=== PATIENT | male | born 1950 | race Caucasian/White ===

== ENCOUNTER → 2016-12-29 | Outpatient (CLI) | payer MEDICARE, OTHER ==
[~2016-12-29] MED LIST: FINA5TAB4 PO; GLUC500T8 PO; MULT-412 PO; NIAC500T PO; OMEG1CAP12 PO; ROSU10TA PO; TADA5TAB2 PO
[2016-12-29 20:44] LABS: ASPARTATE AMINO TRANSFERASE 22 U/L (15-37); BLOOD UREA NITROGEN 23 mg/dL (7-18)
== END | disposition home or self-care (01) ==
LOC: STAR 07:46
PROVIDERS: ATTEND Surgery
DX: Z01.818 Encounter for other preprocedural examination (principal); K40.90 Unilateral inguinal hernia, without obstruction or gangrene, not specified as recurrent
CPT/HCPCS: 36415; 80053; 85025; 93005

== ENCOUNTER 2017-01-13 07:07 | Day surgery (SDC) | payer MEDICARE, OTHER ==
[~2017-01-13] VITALS: Ht 182.9 cm; Wt 85.0 kg
[2017-01-13] MEDS ORDERED: FENTANYL PF 250 MCG/5ML ONE (07:10)
[2017-01-13] MEDS ORDERED: MIDAZOLAM 1 MG/ML, 2ML ONE (07:10)
[2017-01-13] MEDS ORDERED: LACTATED RINGERS 1,000 ML IV SCH (07:27)
[2017-01-13] MEDS ORDERED: BUPIVACAINE/PF 0.25% ONE (07:43)
[2017-01-13 07:48] VITALS: BP 124/82
[2017-01-13] MEDS ORDERED: OXYcodone 5 MG/5 ML ORAL.SOL UDC PO PRN (09:00)
[2017-01-13] MEDS ORDERED: MEPERIDINE/PF 25MG/0.5ML IVPush PRN (09:00)
[2017-01-13] MEDS ORDERED: ACETAMINOPHEN 325 MG TABLET PO PRN (09:00)
[2017-01-13] MEDS ORDERED: LABETALOL 5MG/ML, 20ML IV PRN (09:00)
[2017-01-13] MEDS ORDERED: FENTANYL PF 100 MCG/2ML IV PRN (09:00)
[2017-01-13] MEDS ORDERED: EPINEPHRINE 1 MG/ML, 1ML ONE ×2 (09:00→09:03)
[2017-01-13] MEDS ORDERED: PROMETHAZINE 25 MG/ML, 1ML IV PRN (09:00)
[2017-01-13] MEDS ORDERED: ONDANSETRON 2MG/ML, 2ML IVPush PRN (09:00)
[2017-01-13] MEDS ORDERED: HYDROmorphone 1 MG/ML, 1ML IV PRN (09:00)
[2017-01-13] MEDS ORDERED: ACETAMINOPHEN 325 MG TABLET ONE (10:53)
[2017-01-13] MEDS ORDERED: OXYcodone 5 MG/5 ML ORAL.SOL UDC ONE (10:53)
[2017-01-13] MEDS ORDERED: ROCURONIUM 10 MG/ML ONE (11:06)
[2017-01-13] MEDS ORDERED: ONDANSETRON 2MG/ML, 2ML ONE (11:06)
[2017-01-13] MEDS ORDERED: GLYCOPYRROLATE 0.2MG/1ML ONE (11:06)
[2017-01-13] MEDS ORDERED: PROPOFOL 10 MG/ML, 20ML ONE (11:06)
[2017-01-13] MEDS ORDERED: NEOSTIGMINE 1 MG/ML, 10ML ONE (11:06)
[2017-01-13] MEDS ORDERED: KETOROLAC 30 MG/1 ML ONE (11:06)
[2017-01-13] MEDS ORDERED: DEXAMETHASONE 4 MG/ML, 1ML ONE (11:06)
[2017-01-13] MEDS ORDERED: CEFAZOLIN 1,000 MG ONE (11:06)
== END 2017-01-13 12:20 | disposition home or self-care (01) ==
LOC: OUT 07:07
PROVIDERS: ATTEND Surgery
DX: K40.90 Unilateral inguinal hernia, without obstruction or gangrene, not specified as recurrent (principal); J45.909 Unspecified asthma, uncomplicated; E78.00 Pure hypercholesterolemia, unspecified; Z72.89 Other problems related to lifestyle; Z80.3 Family history of malignant neoplasm of breast; Z98.890 Other specified postprocedural states
CPT/HCPCS: 49650; C1727; C1781; J0171; J0690; J1100; J1885; J2250; J2405; J2704; J2710; J3010; J3490; J7120

== ENCOUNTER 2019-09-24 09:42 | Outpatient (CLI) | payer MEDICARE, OTHER ==
[~2019-09-24 09:42] MED LIST changes: +GLUC500T11 PO; -GLUC500T8 PO; -OMEG1CAP12 PO; +OMEG1CAP23 PO; -ROSU10TA PO; +ROSU10TA2 PO
[2019-09-24] MEDS ORDERED: LOSA25TA25 PO (10:49)
[2019-09-24] MEDS ORDERED: ASPI81TA45 PO (10:49)
[2019-09-24] MEDS ORDERED: UBID200C35 PO (10:50)
[2019-09-24] MEDS ORDERED: OMEP-110 PO (10:50)
[2019-09-24] MEDS ORDERED: PHYT100T PO (10:50)
[2019-09-24] MEDS ORDERED: MAGN100T6 PO (10:50)
[2019-09-24] MEDS ORDERED: ASCO10004 PO (10:50)
== END 2019-09-24 23:59 | disposition home or self-care (01) ==
LOC: STAR 09:42 → MERGE 10:00 → STAR 23:59
PROVIDERS: ATTEND Internal Medicine Gastroenterology
DX: K57.10 Diverticulosis of small intestine without perforation or abscess without bleeding (principal); I51.7 Cardiomegaly
CPT/HCPCS: 87081; 87147; 93005

== ENCOUNTER 2019-09-27 13:35 | Day surgery (SDC) | payer MEDICARE ==
[~2019-09-27] VITALS: Ht 182.9 cm; Wt 75.0 kg
[~2019-09-27 13:35] MED LIST changes: +ASCO10004 PO; +ASPI81TA45 PO; +LOSA25TA25 PO; +MAGN100T6 PO; +OMEP-110 PO; +PHYT100T PO; +UBID200C35 PO
[2019-09-27 13:52] VITALS: BP 128/81
[2019-09-27] MEDS ORDERED: LACTATED RINGERS 1,000 ML IV SCH (13:59)
[2019-09-27] MEDS ORDERED: FENTANYL PF 100 MCG/2ML ONE (14:25)
[2019-09-27] MEDS ORDERED: ROCURONIUM 10MG/ML,5ML ONE (14:50)
[2019-09-27] MEDS ORDERED: SUCCINYLCHOLINE 20 MG/ML, 10ML ONE (14:50)
[2019-09-27] MEDS ORDERED: PROPOFOL 10 MG/ML, 20ML ONE ×3 (14:50)
[2019-09-27] MEDS ORDERED: ONDANSETRON 2MG/ML, 2ML ONE (14:50)
[2019-09-27] MEDS ORDERED: FENTANYL PF 100 MCG/2ML IV PRN (15:30)
[2019-09-27] MEDS ORDERED: OXYcodone 5 MG/5 ML ORAL.SOL UDC PO PRN (15:30)
[2019-09-27] MEDS ORDERED: ONDANSETRON ODT 8 MG PO PRN (15:30)
[2019-09-27] MEDS ORDERED: MIDAZOLAM 1 MG/ML, 2ML IV PRN (15:30)
[2019-09-27] MEDS ORDERED: ACETAMINOPHEN 325 MG TABLET PO PRN (15:30)
[2019-09-27] MEDS ORDERED: EPHEDRINE 50 MG/ML, 1ML IM PRN (15:30)
[2019-09-27] MEDS ORDERED: ONDANSETRON 2MG/ML, 2ML IV PRN (15:30)
== END 2019-09-27 16:05 | disposition home or self-care (01) ==
LOC: OR 13:35 → MERGE 15:00 → OR 16:05
PROVIDERS: ATTEND Internal Medicine Gastroenterology
DX: D13.2 Benign neoplasm of duodenum (principal); I10 Essential (primary) hypertension; E78.5 Hyperlipidemia, unspecified; G47.33 Obstructive sleep apnea (adult) (pediatric); E66.3 Overweight; Z68.23 Body mass index [BMI] 23.0-23.9, adult; Z79.899 Other long term (current) drug therapy; Z98.890 Other specified postprocedural states
CPT/HCPCS: 43239; 88305; J0330; J2405; J2704; J3010; J7120

== ENCOUNTER → 2019-10-02 | Outpatient (CLI) | payer MEDICARE | END | disposition home or self-care (01) | LOC: CFH 08:45 | PROVIDERS: ATTEND Internal Medicine Cardiovascular Disease | DX: Z01.810 Encounter for preprocedural cardiovascular examination (principal); I08.8 Other rheumatic multiple valve diseases; I11.9 Hypertensive heart disease without heart failure | CPT/HCPCS: 93306 ==

== ENCOUNTER 2019-10-30 08:33 | Outpatient (CLI) | payer MEDICARE | END 2019-10-30 23:59 | disposition home or self-care (01) | LOC: CFH 08:33 | PROVIDERS: ATTEND Internal Medicine Cardiovascular Disease | DX: Z01.810 Encounter for preprocedural cardiovascular examination (principal); I10 Essential (primary) hypertension | CPT/HCPCS: 78452; 93017; A9502 ==

== ENCOUNTER → 2020-01-30 | Outpatient (CLI) | payer MEDICARE ==
[2020-01-30 13:31] LABS: CALCIUM 9.2 mg/dL (8.5-10.1); CHLORIDE 107 mmol/L (98-107)
[2020-01-30 13:37] LABS: ALANINE AMINOTRANSFERASE 34 U/L (12-78); ALKALINE PHOSPHATASE 106 U/L (45-117); ANION GAP 3 mmol/L (5-15); BILIRUBIN,TOTAL 0.9 mg/dL (0.2-1.0); CREATININE 1.09 mg/dL (0.7-1.3); TOTAL PROTEIN 7.8 g/dL (6.4-8.2)
== END | disposition home or self-care (01) ==
LOC: STAR 10:53
PROVIDERS: ATTEND Orthopaedic Surgery
DX: Z01.818 Encounter for other preprocedural examination (principal); M17.11 Unilateral primary osteoarthritis, right knee
CPT/HCPCS: 36415; 80053; 87081; 87147; 93005

== ENCOUNTER 2020-02-07 05:15 | Observation (INO) | payer MEDICARE ==
[~2020-02-07] VITALS: Ht 182.9 cm; Wt 76.6 kg
[2020-02-07] MEDS ORDERED: LACTATED RINGERS 1,000 ML IV SCH (05:47)
[2020-02-07 05:50] VITALS: BP 111/73
[2020-02-07] MEDS ORDERED: CHLORHEXIDINE 15 ML UDC MM ONE (06:00)
[2020-02-07] MEDS ORDERED: BUPIVACAINE/PF-EPI 0.5% 1:200K ONE (06:06)
[2020-02-07] MEDS ORDERED: TRANEXAMIC ACID 100 MG/ML, 10ML ONE (06:06)
[2020-02-07] MEDS ORDERED: MIDAZOLAM 1 MG/ML, 2ML ONE (06:35)
[2020-02-07] MEDS ORDERED: FENTANYL PF 250 MCG/5ML ONE (06:36)
[2020-02-07] MEDS ORDERED: D5%-0.45% NACL 1,000 ML IV SCH (06:51)
[2020-02-07] MEDS ORDERED: LIDOCAINE PF 2%, 5ML ONE (06:52)
[2020-02-07] MEDS ORDERED: OXYcodone IR 5MG TABLET PO PRN (07:00)
[2020-02-07] MEDS ORDERED: MAGNESIUM HYDROXIDE 8%, 30ML UDC PO PRN (07:00)
[2020-02-07] MEDS: ACETAMINOPHEN 500 MG TABLET PO SCH ×2 (07:00→13:42)
[2020-02-07] MEDS ORDERED: SENNA/DOCUSATE TABLET PO PRN (07:00)
[2020-02-07] MEDS ORDERED: MORPHINE SULFATE 4 MG/ML, 1ML IVPush PRN (07:00)
[2020-02-07] MEDS ORDERED: KETOROLAC 30 MG/1 ML IV SCH ×2 (07:00→10:30)
[2020-02-07] MEDS ORDERED: DIPHENHYDRAMINE 25 MG CAPSULE PO PRN (07:00)
[2020-02-07] MEDS ORDERED: ONDANSETRON 4 MG TABLET PO PRN (07:00)
[2020-02-07] MEDS ORDERED: LIDOCAINE-MPF 2% ,5ML ONE (07:19)
[2020-02-07] MEDS ORDERED: BUPIVACAINE/PF 0.25% ONE (07:25)
[2020-02-07] MEDS ORDERED: LORazepam 2 MG/ML, 1ML IVPush PRN (07:30)
[2020-02-07] MEDS ORDERED: ALBUTEROL SULFATE 2.5 MG/3 ML NPPB PRN (07:30)
[2020-02-07] MEDS ORDERED: LABETALOL 5MG/ML, 20ML IV PRN (07:30)
[2020-02-07] MEDS ORDERED: PROMETHAZINE 25 MG/ML, 1ML IVPush PRN (07:30)
[2020-02-07] MEDS ORDERED: ACETAMINOPHEN 325 MG TABLET PO PRN (07:30)
[2020-02-07] MEDS ORDERED: OXYcodone 5 MG/5 ML ORAL.SOL UDC PO PRN (07:30)
[2020-02-07] MEDS ORDERED: MEPERIDINE/PF 25MG/0.5ML IVPush PRN (07:30)
[2020-02-07] MEDS ORDERED: hydrALAzine 20 MG/ML, 1ML IV PRN (07:30)
[2020-02-07] MEDS ORDERED: HYDROmorphone 1 MG/ML, 1ML INJ IVPush PRN (07:30)
[2020-02-07] MEDS ORDERED: PROPOFOL 10 MG/ML, 20ML ONE (08:11)
[2020-02-07] MEDS ORDERED: CEFAZOLIN 1,000 MG ONE (08:11)
[2020-02-07] MEDS ORDERED: ONDANSETRON 2MG/ML, 2ML ONE (08:11)
[2020-02-07] MEDS ORDERED: DEXAMETHASONE 4 MG/ML, 1ML ONE (08:11)
[2020-02-07] MEDS ORDERED: NIACIN 500 MG TABLET.ER PO SCH (09:00)
[2020-02-07] MEDS ORDERED: PHYTONADIONE HOMEMEDPO SCH (09:00)
[2020-02-07] MEDS ORDERED: KETOROLAC 30 MG/1 ML ONE (09:05)
[2020-02-07] MEDS ORDERED: FENTANYL PF 100 MCG/2ML ONE (09:14)
[2020-02-07] MEDS ORDERED: OXYcodone 5 MG/5 ML ORAL.SOL UDC ONE (09:14)
[2020-02-07] MEDS: FENTANYL PF 100 MCG/2ML IV PRN ×2 (09:15→09:20)
[2020-02-07] MEDS ORDERED: TRANEXAMIC ACID 1,000 MG in SODIUM CHLORIDE 0.9% 100 ML IV ONE (09:30)
[2020-02-07 10:00] VITALS: BP 149/80
[2020-02-07] MEDS ORDERED: LOSARTAN 25MG TABLET PO SCH (10:23)
[2020-02-07] MEDS ORDERED: OMEPRAZOLE 20 MG CAPSULE.DR PO SCH (10:30)
[2020-02-07 13:00] VITALS: BP 118/75
[2020-02-07] MEDS ORDERED: CEFAZOLIN PMX 1GM/50ML 50 ML IVPB SCH (14:00)
[2020-02-07 15:25] VITALS: BP 115/72
[2020-02-07] MEDS ORDERED: ATORVASTATIN 40 MG TABLET PO SCH (21:00)
[2020-02-07] MEDS ORDERED: DOCUSATE 100 MG CAPSULE PO SCH (21:00)
[2020-02-08] MEDS ORDERED: ASPIRIN 325 MG TABLET PO SCH (06:00)
== END 2020-02-07 16:50 | disposition home or self-care (01) ==
LOC: OUT 05:15 → ORIP 08:02 → 4NE 10:04 → DCLOUNGE 16:38
PROVIDERS: ADMIT Orthopaedic Surgery; ATTEND Orthopaedic Surgery
DX: Z03.818 Encounter for observation for suspected exposure to other biological agents ruled out (principal); M17.11 Unilateral primary osteoarthritis, right knee; M65.9 Synovitis and tenosynovitis, unspecified; J45.909 Unspecified asthma, uncomplicated; G47.30 Sleep apnea, unspecified; I10 Essential (primary) hypertension; E78.5 Hyperlipidemia, unspecified; K21.9 Gastro-esophageal reflux disease without esophagitis
CPT/HCPCS: 20680; 27447; 36415; 73560; 87635; 97162; C1713; C1776; G0378; J0690; J1100; J1885; J2250; J2405; J2704; J3010; J3490; J7120

== ENCOUNTER 2020-10-31 07:53 | Day surgery (SDC) | payer MEDICARE ==
[~2020-10-31] VITALS: Ht 182.9 cm; Wt 81.8 kg
[~2020-10-31 07:53] MED LIST changes: +ASCO100018 PO; -ASCO10004 PO
[2020-10-31 08:36] VITALS: BP 140/100
[2020-10-31 09:03] LABS: BASOPHILS % (AUTO) 1 % (0-1); EOSINOPHILS % (AUTO) 2 % (1-7); LYMPHOCYTES % (AUTO) 23 % (22-44); MEAN CORPUSCULAR HEMOGLOBIN 32.8 pg (27.5-34.5); MEAN CORPUSCULAR HGB CONC 33.9 g/dL (33.2-36.2); MONOCYTES % (AUTO) 7 % (2-9); NEUTROPHILS % (AUTO) 67 % (42-75); PLATELET COUNT 175 x10^3/uL (130-400); RED BLOOD COUNT 4.41 x10^6/uL (4.38-5.82); RED CELL DISTRIBUTION WIDTH 13.3 % (9.4-14.8)
[2020-10-31 09:14] LABS: ANION GAP 3 mmol/L (5-15); CALCIUM 9.1 mg/dL (8.5-10.1); CHLORIDE 107 mmol/L (98-107); CREATININE 1.07 mg/dL (0.7-1.3)
[2020-10-31] MEDS ORDERED: MIDAZOLAM 1 MG/ML, 5ML ONE (09:32)
[2020-10-31] MEDS ORDERED: FENTANYL PF 100 MCG/2ML ONE (09:32)
[2020-10-31] MEDS ORDERED: LIDOCAINE 2%, 20ML ONE (09:32)
[2020-10-31] MEDS ORDERED: SODIUM CHLORIDE 0.9% 1,000 ML IV SCH (11:00)
== END 2020-10-31 12:49 | disposition home or self-care (01) ==
LOC: CACL 07:53
PROVIDERS: ATTEND Internal Medicine Cardiovascular Disease
DX: R93.1 Abnormal findings on diagnostic imaging of heart and coronary circulation (principal); I25.10 Atherosclerotic heart disease of native coronary artery without angina pectoris; I10 Essential (primary) hypertension; E78.5 Hyperlipidemia, unspecified; G47.33 Obstructive sleep apnea (adult) (pediatric); E66.3 Overweight; Z68.25 Body mass index [BMI] 25.0-25.9, adult; Z79.899 Other long term (current) drug therapy; Z98.890 Other specified postprocedural states
CPT/HCPCS: 36415; 80048; 85025; 93458; 99156; C1760; C1769; C1894; J2250; J3010; Q9967